=== PATIENT | female | born 2000 | race Caucasian/White ===

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

== ENCOUNTER 2018-01-03 15:10 | Inpatient (IN) | payer MEDICAID, OTHER ==
[~2018-01-03] VITALS: Ht 149.9 cm; Wt 68.0 kg
[~2018-01-03 15:10] MED LIST changes: -LITH600 PO; +PALI39DI IM; -PALI6 PO
[2018-01-03] MEDS ORDERED: DIPH25 PO (15:43)
[2018-01-03] MEDS ORDERED: TRAZ-219 PO (15:43)
[2018-01-03] MEDS ORDERED: DiphenhydrAMINE HCL 50 MG/ML VIAL IM ONE (16:15)
[2018-01-03] MEDS ORDERED: LORazepam 2 MG/ML VIAL IM ONE (16:15)
[2018-01-03] MEDS ORDERED: HALOPERIDOL LACTATE 5 MG/ML VIAL IM ONE (16:15)
[2018-01-03 16:27] LABS: BASOPHILS % (AUTO) 0.3 % (0.0-2.0); EOSINOPHILS % (AUTO) 0.6 % (1.0-6.0); HEMOGLOBIN 13.7 g/dL (12.0-16.0); LYMPHOCYTES % (AUTO) 14.8 % (22.0-44.0); MEAN CORPUSCULAR HEMOGLOBIN 28.9 pg (26.0-34.0); MEAN CORPUSCULAR HGB CONC 34.2 G/dL (31.0-37.0); MEAN CORPUSCULAR VOLUME 84 fL (80-100); MONOCYTES # (AUTO) 1.6 K/uL (0.1-1.0); MONOCYTES % (AUTO) 7.9 % (2.0-9.0); NEUTROPHILS # (AUTO) 15.6 K/uL (1.8-7.7); NEUTROPHILS % (AUTO) 76.4 % (40.0-70.0); PLATELET COUNT (AUTO) 305 K/uL (150-450); RED BLOOD CELL COUNT(AUTO) 4.74 MIL/uL (4.00-5.20); RED CELL DISTRIBUTION WIDTH 13.1 % (11.5-14.5)
[2018-01-03 16:35] LABS: ANION GAP 15 mmol/L (8-16); CALCIUM, TOTAL 9.3 mg/dL (8.8-10.5); CARBON DIOXIDE 23 mmol/L (22-29); CHLORIDE 99 mmol/L (98-107); CREATININE 0.73 mg/dL (0.60-1.30); GLOMERULAR FILTR. RATE CALC > 60 mL/min (>60); GLUCOSE,RANDOM 111 mg/dL (70-110); POTASSIUM 3.1 mmol/L (3.5-5.1); SODIUM SERUM 137 mmol/L (136-145); UREA NITROGEN, BLOOD 5 mg/dL (7-18)
[2018-01-03 16:41] LABS: ALANINE AMINOTRANSFERASE 18 U/L (12-78); ALBUMIN 4.1 g/dL (3.4-5.0); ALKALINE PHOSPHATASE 108 U/L (46-116); ASPARTATE AMINOTRANSFERASE 14 U/L (15-37); BILIRUBIN,TOTAL 0.6 mg/dL (0.1-1.0); TOTAL PROTEIN, SERUM 8.4 g/dL (6.4-8.2)
[2018-01-03 17:42] LABS: AMPHET/METH SCREEN,URINE POSITIVE (NEGATIVE); BARBITURATE SCREEN, URINE NEGATIVE (NEGATIVE); BENZODIAZEPINES SCREEN,URINE POSITIVE (NEGATIVE); CANNABINOID SCREEN,URINE POSITIVE (NEGATIVE); COCAINE SCREEN,URINE NEGATIVE (NEGATIVE); METHADONE SCREEN, URINE NEGATIVE (NEGATIVE); OPIATE SCREEN,URINE NEGATIVE (NEGATIVE)
[2018-01-03 17:44] LABS: PHENCYCLIDINE SCREEN,URINE NEGATIVE (NEGATIVE)
[2018-01-03] MEDS ORDERED: ZOLPIDEM TARTRATE 10 MG TABLET PO PRN (18:30)
[2018-01-03] MEDS ORDERED: HALOPERIDOL 5 MG TABLET PO PRN (18:30)
[2018-01-03 20:44] VITALS: BP 114/61
[2018-01-03] MEDS ORDERED: LOPERAMIDE HCL 2 MG CAPSULE PO PRN (21:30)
[2018-01-03] MEDS ORDERED: CloNIDine HCL 0.1 MG TABLET PO PRN (21:30)
[2018-01-03] MEDS ORDERED: ACETAMINOPHEN 325 MG TABLET PO PRN (21:30)
[2018-01-03] MEDS ORDERED: MAGNESIUM HYDROXIDE SUSPENSION 30 ML UDCUP PO PRN (21:30)
[2018-01-03] MEDS ORDERED: ONDANSETRON HCL 4 MG TABLET PO PRN (21:30)
[2018-01-03] MEDS ORDERED: PETROLATUM,WHITE 71 GM JELLY TP PRN (21:30)
[2018-01-03] MEDS ORDERED: DOCUSATE SODIUM 100 MG CAPSULE PO PRN (21:30)
[2018-01-03] MEDS ORDERED: IBUPROFEN 400 MG TABLET PO PRN (21:30)
[2018-01-03] MEDS ORDERED: MAG HYDROX/AL HYDROX/SIMETH ES 30 ML SUSPENSION UDCUP PO PRN (21:30)
[2018-01-03] MEDS ORDERED: ALBUTEROL SULFATE HFA 90 MCG/PUFF 8 GM INHALER IH PRN (21:30)
[2018-01-04 04:35] VITALS: BP 120/67
[2018-01-04 07:43] LABS: HEMOGLOBIN A1C 4.8 % (4.5-6.2)
[2018-01-04 07:49] LABS: CHOL/HDL RATIO 2.2 (3.9-5.7); CHOLESTEROL 132 mg/dL (131-200); HCG,QUANTITATIVE < 1 mIU/mL (0-6); HDL CHOLESTEROL 61 mg/dL (40-60); LDL CHOL (CALC.) 57 mg/dL (0-130); THYROID STIMULATING HORMONE 0.63 uIU/mL (0.36-3.74); TRIGLYCERIDES 68 mg/dL (15-150)
[2018-01-04 08:00] VITALS: BP 121/75
[2018-01-04] MEDS ORDERED: POTASSIUM CHLORIDE 20 MEQ ER TABLET PO ONE (09:45)
[2018-01-04] MEDS: PALIPERIDONE 6 MG ER TABLET PO SCH ×2 (10:46→16:16)
[2018-01-04] MEDS: NICOTINE 14 MG/24 HOUR PATCH TD SCH (10:51)
[2018-01-04] MEDS ORDERED: BENZOCAINE/MENTHOL LOZENGE PO PRN (13:30)
[2018-01-04] MEDS: BENZTROPINE MESYLATE 1 MG TABLET PO SCH (16:16)
[2018-01-04 16:33] VITALS: BP 107/69
[2018-01-04] MEDS: TraZODone HCL 50 MG TABLET PO SCH (20:24)
[2018-01-04] MEDS: LORazepam 2 MG TABLET PO PRN (21:24)
[2018-01-05 06:11] LABS: BASOPHILS % (AUTO) 0.3 % (0.0-2.0); HEMATOCRIT 36.4 % (36-46); HEMOGLOBIN 12.4 g/dL (12.0-16.0); LYMPHOCYTES # (AUTO) 3.1 K/uL (1.0-4.8); LYMPHOCYTES % (AUTO) 25.4 % (22.0-44.0); MEAN CORPUSCULAR HEMOGLOBIN 28.7 pg (26.0-34.0); MEAN CORPUSCULAR HGB CONC 34.1 G/dL (31.0-37.0); MEAN CORPUSCULAR VOLUME 84 fL (80-100); MONOCYTES # (AUTO) 0.9 K/uL (0.1-1.0); MONOCYTES % (AUTO) 7.6 % (2.0-9.0); NEUTROPHILS # (AUTO) 7.6 K/uL (1.8-7.7); NEUTROPHILS % (AUTO) 62.7 % (40.0-70.0); PLATELET COUNT (AUTO) 309 K/uL (150-450); RED BLOOD CELL COUNT(AUTO) 4.33 MIL/uL (4.00-5.20); RED CELL DISTRIBUTION WIDTH 13.2 % (11.5-14.5)
[2018-01-05 08:13] VITALS: BP 111/72
[2018-01-05] MEDS: PALIPERIDONE 6 MG ER TABLET PO SCH ×2 (11:29→16:08)
[2018-01-05] MEDS: NICOTINE 14 MG/24 HOUR PATCH TD SCH (11:29)
[2018-01-05] MEDS: BENZTROPINE MESYLATE 1 MG TABLET PO SCH ×2 (11:29→16:08)
[2018-01-05] MEDS: LORazepam 2 MG TABLET PO PRN (16:33)
[2018-01-05] MEDS: TraZODone HCL 50 MG TABLET PO SCH (20:24)
[2018-01-05 20:36] VITALS: BP 107/61
[2018-01-06] MEDS: PALIPERIDONE 6 MG ER TABLET PO SCH ×2 (09:02→16:11)
[2018-01-06] MEDS: BENZTROPINE MESYLATE 1 MG TABLET PO SCH ×2 (09:02→16:11)
[2018-01-06] MEDS: NICOTINE 14 MG/24 HOUR PATCH TD SCH (09:05)
[2018-01-06 10:13] VITALS: BP 106/60
[2018-01-06 16:56] VITALS: BP 94/58
[2018-01-06] MEDS: TraZODone HCL 50 MG TABLET PO SCH (20:19)
[2018-01-07] MEDS: BENZTROPINE MESYLATE 1 MG TABLET PO SCH ×2 (09:25→16:08)
[2018-01-07] MEDS: NICOTINE 14 MG/24 HOUR PATCH TD SCH (09:25)
[2018-01-07] MEDS: PALIPERIDONE 6 MG ER TABLET PO SCH ×2 (09:25→16:08)
[2018-01-07 16:16] VITALS: BP 113/68
[2018-01-07] MEDS: TraZODone HCL 50 MG TABLET PO SCH (20:14)
[2018-01-08 05:53] LABS: BASOPHILS % (AUTO) 1.1 % (0.0-2.0); EOSINOPHILS % (AUTO) 3.8 % (1.0-6.0); HEMATOCRIT 37.5 % (36-46); HEMOGLOBIN 13.1 g/dL (12.0-16.0); LYMPHOCYTES # (AUTO) 3.4 K/uL (1.0-4.8); LYMPHOCYTES % (AUTO) 32.6 % (22.0-44.0); MEAN CORPUSCULAR HEMOGLOBIN 29.2 pg (26.0-34.0); MEAN CORPUSCULAR HGB CONC 34.8 G/dL (31.0-37.0); MEAN CORPUSCULAR VOLUME 84 fL (80-100); MONOCYTES # (AUTO) 0.6 K/uL (0.1-1.0); MONOCYTES % (AUTO) 5.9 % (2.0-9.0); NEUTROPHILS # (AUTO) 5.9 K/uL (1.8-7.7); NEUTROPHILS % (AUTO) 56.6 % (40.0-70.0); PLATELET COUNT (AUTO) 386 K/uL (150-450); RED BLOOD CELL COUNT(AUTO) 4.48 MIL/uL (4.00-5.20); RED CELL DISTRIBUTION WIDTH 12.8 % (11.5-14.5)
[2018-01-08] MEDS ORDERED: BENZ1TAB10 PO (07:42)
[2018-01-08] MEDS ORDERED: PALI6 PO (07:42)
[2018-01-08] MEDS: BENZTROPINE MESYLATE 1 MG TABLET PO SCH (09:27)
[2018-01-08] MEDS: PALIPERIDONE 6 MG ER TABLET PO SCH (09:27)
[2018-01-08 10:17] VITALS: BP 101/65
== END 2018-01-08 10:33 | disposition home or self-care (01) | DRG 750 ==
LOC: EMS 15:12 → 3EC 20:04 → 3EI 01-07 17:49
PROVIDERS: ADMIT Psychiatry & Neurology Child & Adolescent Psychiatry; ATTEND Psychiatry & Neurology Child & Adolescent Psychiatry
DX: F20.0 Paranoid schizophrenia (principal); F32.9 Major depressive disorder, single episode, unspecified; F15.10 Other stimulant abuse, uncomplicated; F17.200 Nicotine dependence, unspecified, uncomplicated; F12.10 Cannabis abuse, uncomplicated; F10.10 Alcohol abuse, uncomplicated; E87.6 Hypokalemia; F41.9 Anxiety disorder, unspecified; F19.10 Other psychoactive substance abuse, uncomplicated; G47.00 Insomnia, unspecified; J02.9 Acute pharyngitis, unspecified; Z71.51 Drug abuse counseling and surveillance of drug abuser; Z71.6 Tobacco abuse counseling; Z88.0 Allergy status to penicillin
CPT/HCPCS: 83036; 84132; 84443; 96372; 99285; G0480; J1200; J1630; J2060

== ENCOUNTER 2020-11-01 20:11 | Emergency (ER) | payer MEDICAID, OTHER ==
[~2020-11-01] VITALS: Ht 149.9 cm; Wt 68.2 kg
[~2020-11-01 20:11] MED LIST changes: +BENZ1TAB10 PO; -PALI39DI IM; +PALI6TAB15 PO; +TRAZ-252 PO
[2020-11-01] MEDS ORDERED: LORazepam 1 MG TABLET PO ONE (20:30)
[2020-11-01] MEDS ORDERED: PERTUSS(ACELL),DIPH,TET VAC/PF 0.5 ML SYRINGE IM. ONE (20:30)
[2020-11-01 21:55] VITALS: BP 120/70
== END 2020-11-01 21:56 | disposition home or self-care (01) ==
LOC: EMS 20:13
DX: S61.230A Puncture wound without foreign body of right index finger without damage to nail, initial encounter (principal); F20.9 Schizophrenia, unspecified; F15.10 Other stimulant abuse, uncomplicated; F41.9 Anxiety disorder, unspecified; F32.9 Major depressive disorder, single episode, unspecified; F17.210 Nicotine dependence, cigarettes, uncomplicated; F12.90 Cannabis use, unspecified, uncomplicated; Z88.0 Allergy status to penicillin; X58.XXXA Exposure to other specified factors, initial encounter; Y93.89 Activity, other specified; Y92.89 Other specified places as the place of occurrence of the external cause; Y99.8 Other external cause status
CPT/HCPCS: 90471; 90715; 99283

== ENCOUNTER 2025-03-12 10:31 | Emergency (ER) | payer OTHER ==
[~2025-03-12] VITALS: Ht 157.5 cm; Wt 68.2 kg
[~2025-03-12 10:31] MED LIST changes: +BENZ-247 PO; -BENZ1TAB10 PO
[2025-03-12 10:34] VITALS: TEMP 98.8
[2025-03-12] MEDS ORDERED: PREN1TAB80 PO (10:38)
[2025-03-12] MEDS ORDERED: LURA40TA2 PO ×2 (10:38)
[2025-03-12] MEDS ORDERED: PRED-554 PO (11:11)
[2025-03-12] MEDS ORDERED: DIPH50CA37 PO (11:11)
[2025-03-12] MEDS ORDERED: HYDR30CR39 TP (11:11)
[2025-03-12] MEDS: ACETAMINOPHEN 500 MG TABLET PO ONE (11:16)
[2025-03-12 12:00] VITALS: BP 118/69; PULSE 89; RESP 16; O2SAT 99
== END 2025-03-12 12:13 | disposition home or self-care (01) ==
LOC: EMS 10:37
DX: O99.711 Diseases of the skin and subcutaneous tissue complicating pregnancy, first trimester (principal); L24.9 Irritant contact dermatitis, unspecified cause; O99.341 Other mental disorders complicating pregnancy, first trimester; F20.9 Schizophrenia, unspecified; F32.A Depression, unspecified; F41.9 Anxiety disorder, unspecified; F12.90 Cannabis use, unspecified, uncomplicated; O99.321 Drug use complicating pregnancy, first trimester; F15.90 Other stimulant use, unspecified, uncomplicated; F17.210 Nicotine dependence, cigarettes, uncomplicated; F10.90 Alcohol use, unspecified, uncomplicated; Z88.0 Allergy status to penicillin; Z79.899 Other long term (current) drug therapy; Z3A.10 10 weeks gestation of pregnancy; Y90.9 Presence of alcohol in blood, level not specified
CPT/HCPCS: 99283

== ENCOUNTER 2025-04-01 18:07 | Emergency (ER) | payer OTHER ==
[~2025-04-01] VITALS: Ht 149.9 cm; Wt 117.0 kg
[~2025-04-01 18:07] MED LIST changes: -BENZ-247 PO; +DIPH50CA37 PO; +HYDR30CR39 TP; +LURA40TA2 PO; -PALI6TAB15 PO; +PRED-554 PO; +PREN1TAB80 PO; -TRAZ-252 PO
[2025-04-01 18:10] VITALS: BP 105/61; PULSE 73; RESP 18; TEMP 98.8; O2SAT 100
[2025-04-01] MEDS ORDERED: PNV1TABL57 PO (18:13)
[2025-04-01] MEDS ORDERED: LURA40TA2 PO (18:49)
== END 2025-04-01 18:56 | disposition home or self-care (01) ==
LOC: EMS 18:07
DX: O26.891 Other specified pregnancy related conditions, first trimester (principal); F20.9 Schizophrenia, unspecified; O99.321 Drug use complicating pregnancy, first trimester; F12.90 Cannabis use, unspecified, uncomplicated; F15.90 Other stimulant use, unspecified, uncomplicated; F17.210 Nicotine dependence, cigarettes, uncomplicated; F10.90 Alcohol use, unspecified, uncomplicated; F41.9 Anxiety disorder, unspecified; F32.A Depression, unspecified; Z76.0 Encounter for issue of repeat prescription; Z88.0 Allergy status to penicillin; Z79.899 Other long term (current) drug therapy; Z3A.01 Less than 8 weeks gestation of pregnancy; Y90.9 Presence of alcohol in blood, level not specified
CPT/HCPCS: 99281; 99282; Z7502

== ENCOUNTER 2025-05-04 20:57 | Emergency (ER) | payer OTHER ==
[~2025-05-04] VITALS: Ht 165.1 cm; Wt 80.0 kg
[~2025-05-04 20:57] MED LIST changes: -HYDR30CR39 TP; +PNV1TABL57 PO; -PRED-554 PO; -PREN1TAB80 PO
[2025-05-04 21:12] VITALS: BP 110/60; PULSE 102; RESP 18; TEMP 97.8; O2SAT 98
== END 2025-05-04 23:39 | disposition left against medical advice (07) ==
LOC: EMS 21:08
DX: L29.9 Pruritus, unspecified (principal); Z53.21 Procedure and treatment not carried out due to patient leaving prior to being seen by health care provider
CPT/HCPCS: 99281; Z7502

== ENCOUNTER 2025-05-05 00:50 | Emergency (ER) | payer OTHER ==
[~2025-05-05] VITALS: Ht 149.9 cm; Wt 74.1 kg
[2025-05-05 00:56] VITALS: BP 109/77; PULSE 71; RESP 18; TEMP 98.1; O2SAT 98
[2025-05-05 01:23] LABS: COVID AG,FIA SOURCE NASAL SWAB
[2025-05-05 01:25] LABS: PLATELET COUNT (AUTO) 298 K/uL (150-450); RED BLOOD CELL COUNT(AUTO) 4.03 MIL/uL (4.00-5.20); RED CELL DISTRIBUTION WIDTH 13.4 % (11.5-14.5); WHITE BLOOD COUNT (AUTO) 9.1 K/uL (4.5-11.0)
[2025-05-05 01:28] LABS: SARS-COV2 (COVID) ANTIGEN,FIA Negative (Negative)
[2025-05-05 01:40] LABS: CALCIUM, TOTAL 8.1 mg/dL (8.8-10.5); CREATININE 0.48 mg/dL (0.60-1.30); GLOMERULAR FILTR. RATE CALC > 60 mL/min (>60); GLUCOSE,RANDOM 86 mg/dL (70-110); SODIUM SERUM 136 mmol/L (136-145); UREA NITROGEN, BLOOD 6 mg/dL (7-18)
== END 2025-05-05 02:27 | disposition left against medical advice (07) ==
LOC: EMS 00:52
DX: L29.9 Pruritus, unspecified (principal); Z53.21 Procedure and treatment not carried out due to patient leaving prior to being seen by health care provider; Z20.822 Contact with and (suspected) exposure to COVID-19
CPT/HCPCS: 99281; 87426; 80048; 85025; 36415; G0480